=== PATIENT | female | born 1965 ===

== ENCOUNTER 2019-11-23 13:34 | Inpatient (IN) | payer OTHER ==
[2019-11-27] MEDS ORDERED: IRBESARTAN150 MG PO ×2 (11:27→11:46)
[2019-11-27] MEDS ORDERED: CLONAZEPAM1 MG PO ×2 (11:29→11:46)
[2019-11-27] MEDS ORDERED: FENTANYL1 EAC3 TD (11:30)
[2019-11-27] MEDS ORDERED: BUTALB-ACETAMI1 EAC2 PO (11:30)
[2019-11-27] MEDS ORDERED: HALOPERIDOL5 MG/1 ML IM (11:30)
[2019-11-27] MEDS ORDERED: Depakote 250MG DR TA PO (11:30)
[2019-11-27] MEDS ORDERED: HALOPERIDOL0.5 MG PO (11:30)
== END 2019-11-27 15:59 | disposition home or self-care (01) | DRG 101 ==
LOC: SURH 13:34
PROVIDERS: ADMIT Internal Medicine Hematology & Oncology
PROC: B030Y0Z Magnetic Resonance Imaging (MRI) of Brain using Other Contrast, Unenhanced and Enhanced (ICD-10-PCS; principal; 2019-11-23)
PROC: 8E0ZXY6 Isolation (ICD-10-PCS; 2019-11-23)
PROC: C0101ZZ Planar Nuclear Medicine Imaging of Brain using Technetium 99m (Tc-99m) (ICD-10-PCS; 2019-11-25)
DX: G40.401 Other generalized epilepsy and epileptic syndromes, not intractable, with status epilepticus (principal); G13.0 Paraneoplastic neuromyopathy and neuropathy; S50.12XA Contusion of left forearm, initial encounter; D50.8 Other iron deficiency anemias; E86.0 Dehydration; E87.8 Other disorders of electrolyte and fluid balance, not elsewhere classified; C50.211 Malignant neoplasm of upper-inner quadrant of right female breast; Z17.0 Estrogen receptor positive status [ER+]
CPT/HCPCS: 70552